=== PATIENT | male | born 1975 | race Caucasian/White ===

== ENCOUNTER 2018-12-28 05:30 | Day surgery (SDC) | payer MEDICAID ==
[2018-12-27 15:58] LABS: BASOPHILS # (AUTO) 0.1 X10'3 (0-0.2); BASOPHILS % (AUTO) 1.1 % (0-1); EOSINOPHILS # (AUTO) 0.2 X10'3 (0-0.9); EOSINOPHILS % (AUTO) 1.9 % (0-6); LYMPHOCYTES % (AUTO) 17.5 % (21-51); MEAN CORPUSCULAR HEMOGLOBIN 27.2 PG (27.0-31.0); MEAN CORPUSCULAR HGB CONC 33.1 g/dL (33.0-36.5); MEAN CORPUSCULAR VOLUME 82.3 FL (78-98); MEAN PLATELET VOLUME 8.9 FL (7.4-10.4); MONOCYTES # (AUTO) 1.5 X10'3 (0-0.9); MONOCYTES % (AUTO) 13.8 % (2-12); NEUTROPHILS # (AUTO) 7.3 X10'3 (1.8-7.7); NEUTROPHILS % (AUTO) 65.7 % (42-75); PRE OP HEMATOCRIT 43.5 % (42.0-52.0); PRE OP HEMOGLOBIN 14.4 g/dL (14.0-17.9); PRE OP PLATELET COUNT 363 X10'3 (140-440); RED BLOOD COUNT 5.29 X10'6 (4.70-6.10); RED CELL DISTRIBUTION WIDTH 18.9 % (11.5-14.5)
[2018-12-27 16:02] LABS: CLARITY,URINE CLEAR (Clear); COLOR,URINE YELLOW (Yellow); GLUCOSE, URINE NEGATIVE (Neg); KETONES,URINE NEGATIVE (Neg); LEUKOCYTE ESTERASE ,URINE NEGATIVE (Neg); NITRITES, URINE NEGATIVE (Neg); OCCULT BLOOD,URINE TRACE-INTACT (Neg); PROTEIN,URINE NEGATIVE (Neg); UROBILINOGEN,URINE 0.2 E.U/dL (0.2-1.0)
[2018-12-27 16:03] LABS: ALBUMIN 4.1 G/DL (3.4-5.0); ALKALINE PHOSPHATASE 111 IU/L (46-116); BLOOD UREA NITROGEN 18 MG/DL (7-18); BUN/CREATININE RATIO 17.5 (5.4-32.0); CALCIUM 9.2 MG/DL (8.5-10.1); CHLORIDE 107 MMOL/L (99-107); CREATININE 1.03 MG/DL (0.60-1.10); PRE OP ALT 24 U/L (30-65); PRE OP ANION GAP 10 (8-16); PRE OP AST 17 U/L (10-37); PRE OP BILIRUB, TOTAL 0.2 MG/DL (0.0-1.0); PRE OP GLUCOSE 91 MG/DL (70-104); PRE OP POTASSIUM 3.8 MMOL/L (3.4-5.1); PRE OP SODIUM 142 MMOL/L (135-145); TOTAL CARBON DIOXIDE 24.8 MMOL/L (24-32); TOTAL PROTEIN 8.3 G/DL (6.4-8.2); eGFR 78 ML/MIN
[2018-12-27 16:29] LABS: LARGE PLATELETS FEW; PLATELET ESTIMATE NORMAL
[2018-12-27 16:30] LABS: ANISOCYTOSIS 2+
[2018-12-27 16:34] LABS: UA COLLECTION TYPE VOIDED
[2018-12-27 16:35] LABS: BACTERIA,URINE NONE SEEN /HPF (Neg); RBC,URINE 0-2 /HPF (0-2); SQUAMOUS EPITHELIAL CELL,UR NONE SEEN /LPF (FEW); WBC,URINE NONE SEEN /HPF (0-4)
[2018-12-28] VITALS (15 sets, daily range): BP systolic 119–171; BP diastolic 71–99
[~2018-12-28] VITALS: Ht 172.7 cm; Wt 79.0 kg
[~2018-12-28 05:30] MED LIST: ACET-75 PO; ATOR10TA87 PO; BACL20TA PO; BUPR150T8 PO; ESCI10TA54 PO; GABA-532 PO; IBUP-1986 PO; MELO-102 PO; PANT40TA4 PO; VERA120T2 PO
[2018-12-28] MEDS ORDERED: LIDOcaine 1% (10mg/ml) 2ml vial ONE (05:55)
[2018-12-28] MEDS ORDERED: ceFAZolin 1000mg inj ONE (07:30)
[2018-12-28] MEDS ORDERED: BUPIVAcaine/PF 2.5 mg/ml (0.25%) 30ml vial ONE (07:30)
[2018-12-28] MEDS ORDERED: fentaNYL/PF 50MCG/1 ML 2ML syringe ONE (08:23)
[2018-12-28] MEDS ORDERED: midazolam 2 mg/2 ml injection ONE (08:24)
[2018-12-28] MEDS ORDERED: rocuronium 10mg/ml inj IV ONE (09:05)
[2018-12-28] MEDS ORDERED: ondansetron/PF 4mg/2ml inj ONE (09:05)
[2018-12-28] MEDS ORDERED: propofol inj 20 ML IV ONE (09:05)
[2018-12-28] MEDS ORDERED: dexamethasone sod phosphate 4mg/ml inj. ONE (09:05)
[2018-12-28] MEDS ORDERED: ringers solution, lacted 1,000 ML IV SCH ×2 (09:13→09:45)
[2018-12-28] MEDS ORDERED: morphine 4 MG/ML inj SYRINge IV PRN ×2 (09:15)
[2018-12-28] MEDS ORDERED: ondansetron/PF 4mg/2ml inj IV PRN (09:15)
[2018-12-28] MEDS ORDERED: proCHLORperazine 10 MG/2 ml inj IV PRN (09:15)
[2018-12-28] MEDS ORDERED: meperidine/PF 25mg/ml syringe IV PRN ×3 (09:15)
[2018-12-28] MEDS ORDERED: neostigmine methylsulfate 1 MG/ML 10ml vial ONE (09:32)
[2018-12-28] MEDS ORDERED: glycopyrrolate 0.2mg/ml inj ONE (09:32)
--- NOTE | 2018-12-28 09:42 | NUR ---
Received from OR via , accompanied by Anesthesiologist DR BORRERO and report given by Anesthesiolgist. PT SLEEPING BUT OPENS EYES TO VOICE, SKIN WARM AND PINK MOVES EXT X 4, PIV RIGHT WRIST 20G WITH LR, 2 BA'S ON ABD CD, NO C/O PAIN.
[2018-12-28] MEDS ORDERED: cefazolin/dext.iso 2gm/100 ML IV ONE (09:45)
[2018-12-28] MEDS ORDERED: albuterol 2.5 MG/3 ML nebule NEB ONE (09:45)
[2018-12-28] MEDS ORDERED: famotidine 20mg tablet PO ONE (09:45)
--- NOTE | 2018-12-28 10:36 | NUR ---
PT ATTEMPTED TO VOID. ONLY A FEW DROPS. PT FEELS LIKE HE HAS TO VOID.
--- NOTE | 2018-12-28 11:49 | NUR ---
PT MEETS DISCHARGE CRITERIA, VSS, IV REMOVED, 2 BA'S ON ABD CD, KERLINE FLUIDS, ABLE TO VOID 200MLS, DISCHARGE INSTRUCTIONS REVIEWED WITH PT. VERBALIZED UNDERSTANDING. NORCO SCRIPT GIVEN TO PT BY FRANNIE. JANELLE DUFFY (07/10).
--- NOTE | 2018-12-28 11:49 | NUR ---
PT MEETS DISCHARGE CRITERIA
== END 2018-12-28 11:49 | disposition home or self-care (01) ==
LOC: PAS 05:30
PROVIDERS: ATTEND Surgery
DX: K40.90 Unilateral inguinal hernia, without obstruction or gangrene, not specified as recurrent (principal); F17.210 Nicotine dependence, cigarettes, uncomplicated; G43.909 Migraine, unspecified, not intractable, without status migrainosus; F32.9 Major depressive disorder, single episode, unspecified; F41.9 Anxiety disorder, unspecified; E78.5 Hyperlipidemia, unspecified; M19.90 Unspecified osteoarthritis, unspecified site; G62.9 Polyneuropathy, unspecified; Z86.14 Personal history of Methicillin resistant Staphylococcus aureus infection; Z88.2 Allergy status to sulfonamides; Z79.899 Other long term (current) drug therapy; Z98.890 Other specified postprocedural states; Z83.6 Family history of other diseases of the respiratory system; Z81.1 Family history of alcohol abuse and dependence
CPT/HCPCS: 36415; 49650; 71046; 80053; 81001; 82948; 85025; 93005; C1781; J0690; J1100; J2001; J2250; J2405; J2704; J2710; J3010; J3490; J7120; A4215; A4314; A4618; A6258; A7000

== ENCOUNTER → 2023-03-01 | Emergency (ER) | payer MEDICAID ==
[~2023-03-01] VITALS: Ht 167.6 cm; Wt 79.5 kg
[~2023-03-01] MED LIST changes: +ESCI-8 PO; -ESCI10TA54 PO; +LORazepam 2 mg/ml vial IV ONE; -PANT40TA4 PO; +PANT40TA54 PO; +acetaminophen 325mg tablet PO ONE; +aspirin 81mg tab.chew PO ONE; +nitroGLYCERIN 0.2mg/hour patch TD ONE; +normal saline 1000ml 1,000 ML IV ONE; +ondansetron/PF 4mg/2ml inj IV ONE; +pantoprazole 40 MG vial IV ONE; +pantoprazole 40MG/NS 100ML BAG 100 ML IV ONE
[2023-03-01 14:59] VITALS: TEMP 97.8
[2023-03-01 15:15] LABS: BASOPHILS # (AUTO) 0.1 X10'3 (0-0.2); BASOPHILS % (AUTO) 0.8 % (0-1); EOSINOPHILS % (AUTO) 0.2 % (0-6); HEMATOCRIT 52.8 % (42.0-52.0); HEMOGLOBIN 17.9 g/dl (14.0-17.9); LYMPHOCYTES # (AUTO) 1.8 X10'3 (1.1-4.8); LYMPHOCYTES % (AUTO) 13.8 % (21-51); MEAN CORPUSCULAR HGB CONC 33.9 g/dL (33.0-36.5); MEAN CORPUSCULAR VOLUME 91.3 FL (78-98); MEAN PLATELET VOLUME 8.9 FL (7.4-10.4); MONOCYTES # (AUTO) 1.7 X10'3 (0-0.9); MONOCYTES % (AUTO) 12.8 % (2-12); NEUTROPHILS # (AUTO) 9.7 X10'3 (1.8-7.7); NEUTROPHILS % (AUTO) 72.4 % (42-75); PLATELET COUNT 311 X10'3 (140-440); RED BLOOD COUNT 5.78 X10'6 (4.70-6.10); RED CELL DISTRIBUTION WIDTH 14.6 % (11.5-14.5); WHITE BLOOD COUNT 13.4 X10'3 (4.5-11.0)
[2023-03-01 15:29] LABS: ALANINE AMINOTRANSFERASE 26 U/L (12-78); ALBUMIN 4.7 G/DL (3.4-5.0); ALBUMIN/GLOBULIN RATIO 1.1 (1.1-1.5); ALKALINE PHOSPHATASE 103 IU/L (46-116); ANION GAP 12 (8-16); ASPARTATE AMINO TRANSFERASE 14 U/L (10-37); BILIRUBIN,TOTAL 0.7 MG/DL (0.1-1.0); BLOOD UREA NITROGEN 11 MG/DL (7-18); BUN/CREATININE RATIO 10.5 (10.0-20.0); CALCIUM 9.6 MG/DL (8.5-10.1); CHLORIDE 101 MMOL/L (99-107); CREATININE 1.05 MG/DL (0.60-1.10); GLUCOSE 96 MG/DL (70-104); POTASSIUM 3.7 MMOL/L (3.5-5.1); SODIUM 136 MMOL/L (135-145); TOTAL CARBON DIOXIDE 23.3 MMOL/L (24-32); eCRCL 78 ML/MIN; eGFR 75 ML/MIN
[2023-03-01 15:36] LABS: PRO BRAIN NATRIURETIC PEPTIDE < 30 PG/ML (0-125)
--- NOTE | 2023-03-01 17:29 | NUR ---
RN NOTIFIED PT SHE WILL HAVE TO START AN IV AND PER PT HE WOULD LIKE TO KNOW HOW LONG HE HAS TO STAY BECAUSE HE HAS TO DROP OFF HIS FAMILY MEMBER. RN WILL INQ WITH DR RODRIGUEZ. RN EDUCATED PT ON IMPORTANCE OF HAVING IV AND HE VERBALIZED UNDERSTANDING.
[2023-03-01 17:45] VITALS: BP 162/91; PULSE 80; RESP 16; O2SAT 100
--- NOTE | 2023-03-01 17:51 | NUR ---
PT REFUSING IV AT THIS TIME UNLESS IT IS ABSOLUTELY NECESSARY AND STATES HE WILL STAY FOR ANOTHER HOUR. RN WILL NOTIFY DR RODRIGUEZ.
[2023-03-01 18:03] LABS: APTT 32 SECONDS (22-32); ETHANOL < 10 MG/DL (<10); LIPASE 15 U/L (16-77); PHOSPHORUS 4.5 MG/DL (2.3-4.5); PROTHROMBIN TIME 10.9 SECONDS (9.0-12.0)
[2023-03-01 18:13] LABS: D-DIMER < 0.19 MG/L FEU (0-0.50)
--- NOTE | 2023-03-01 18:15 | NUR ---
RN NOTIFIED DR RODRIGUEZ THAT PT WAS REFUSING IV AND PER DR RODRIGUEZ HE WILL SPEAK WITH PT.
--- NOTE | 2023-03-01 18:19 | NUR ---
PER DR RODRIGUEZ PT INSISTING ON LEAVING AMA DESPITE HIS EDUCATION. RN WILL HAVE PT SIGN FORM AND REMOVE NITRO PATCH.
--- NOTE | 2023-03-01 18:24 | NUR ---
PT LEFT AMA/SIGNED AMA FORM AND FORM PLACED IN CHART/NITRO PATCH REMOVED FROM PT CHEST. PT REFUSED FURTHER TREATMENT AND INSISTED ON LEAVING AMA DESPITE BEING EDUCATED ABOUT RISKS AND CHANCE OF AND VERBALIZING UNDERSTANDING. NO IV WAS PLACED.
== END | disposition left against medical advice (07) ==
LOC: ER 14:52
DX: R07.89 Other chest pain (principal); I24.9 Acute ischemic heart disease, unspecified; G43.909 Migraine, unspecified, not intractable, without status migrainosus; E78.00 Pure hypercholesterolemia, unspecified; I10 Essential (primary) hypertension; Z88.2 Allergy status to sulfonamides; Z79.1 Long term (current) use of non-steroidal anti-inflammatories (NSAID); Z79.899 Other long term (current) drug therapy
CPT/HCPCS: 36415; 71045; 80053; 80320; 83690; 83880; 84100; 84484; 85025; 85379; 85610; 85730; 93005; 99285; 99291

== ENCOUNTER 2023-03-02 15:46 | Emergency (ER) | payer MEDICAID ==
[~2023-03-02] VITALS: Ht 167.6 cm; Wt 77.1 kg
[~2023-03-02 15:46] MED LIST changes: -LORazepam 2 mg/ml vial IV ONE; -acetaminophen 325mg tablet PO ONE; -aspirin 81mg tab.chew PO ONE; -nitroGLYCERIN 0.2mg/hour patch TD ONE; -normal saline 1000ml 1,000 ML IV ONE; -ondansetron/PF 4mg/2ml inj IV ONE; -pantoprazole 40 MG vial IV ONE; -pantoprazole 40MG/NS 100ML BAG 100 ML IV ONE
[2023-03-02 16:03] VITALS: TEMP 97
[2023-03-02 17:20] VITALS: BP 159/97; PULSE 80; RESP 18; O2SAT 98
== END 2023-03-02 19:27 | disposition home or self-care (01) ==
LOC: ER 15:48
DX: I10 Essential (primary) hypertension (principal); G43.909 Migraine, unspecified, not intractable, without status migrainosus; E78.00 Pure hypercholesterolemia, unspecified; G89.29 Other chronic pain; Z88.2 Allergy status to sulfonamides; Z79.899 Other long term (current) drug therapy
CPT/HCPCS: 99281

== ENCOUNTER 2024-01-10 08:07 | Day surgery (SDC) | payer MEDICAID ==
[2024-01-06 13:58] LABS: BASOPHILS # (AUTO) 0.1 X10'3 (0-0.2); EOSINOPHILS # (AUTO) 0.1 X10'3 (0-0.9); LYMPHOCYTES # (AUTO) 1.8 X10'3 (1.1-4.8); MONOCYTES # (AUTO) 1.3 X10'3 (0-0.9); PRE OP HEMOGLOBIN 15.4 g/dL (14.0-17.9); RED CELL DISTRIBUTION WIDTH 14.5 % (11.5-14.5)
[2024-01-06 14:00] LABS: BASOPHILS % (AUTO) 0.8 % (0-1); EOSINOPHILS % (AUTO) 0.7 % (0-6); LYMPHOCYTES % (AUTO) 20.5 % (21-51); MEAN CORPUSCULAR HEMOGLOBIN 31.3 PG (27.0-31.0); MEAN CORPUSCULAR HGB CONC 33.7 g/dL (33.0-36.5); MEAN CORPUSCULAR VOLUME 92.8 FL (78-98); MEAN PLATELET VOLUME 8.8 FL (7.4-10.4); MONOCYTES % (AUTO) 14.8 % (2-12); NEUTROPHILS # (AUTO) 5.7 X10'3 (1.8-7.7); NEUTROPHILS % (AUTO) 63.2 % (42-75); PRE OP HEMATOCRIT 45.7 % (42.0-52.0); PRE OP PLATELET COUNT 283 X10'3 (140-440); RED BLOOD COUNT 4.92 X10'6 (4.70-6.10)
[2024-01-06 14:11] LABS: ALKALINE PHOSPHATASE 97 IU/L (46-116); BLOOD UREA NITROGEN 17 MG/DL (7-18); BUN/CREATININE RATIO 19.5 (10.0-20.0); CALCIUM 9.1 MG/DL (8.5-10.1); CHLORIDE 107 MMOL/L (99-107); CREATININE 0.87 MG/DL (0.60-1.10); PRE OP ALT 32 U/L (30-65); PRE OP ANION GAP 6 (8-16); PRE OP AST 18 U/L (10-37); PRE OP BILIRUB, TOTAL 0.3 MG/DL (0.0-1.0); PRE OP GLUCOSE 62 MG/DL (70-104); PRE OP SODIUM 141 MMOL/L (135-145); TOTAL CARBON DIOXIDE 27.8 MMOL/L (24-32); TOTAL PROTEIN 7.9 G/DL (6.4-8.2); eGFR > 90 ML/MIN
[2024-01-10] VITALS (7 sets, daily range): BP systolic 113–138; BP diastolic 83–93; PULSE 61–80; RESP 11–16; TEMP 98.3; O2SAT 96–100
[~2024-01-10] VITALS: Ht 167.6 cm; Wt 75.6 kg
[2024-01-10] MEDS: cefazolin 2gm/D5W 100mL 100 ML IV ONE (05:30)
[~2024-01-10 08:07] MED LIST changes: +AMIT50TA15 PO; +ERGO500041 PO; -ESCI-8 PO; +FLO0.4C PO; +FLUT100B3 INH; -IBUP-1986 PO
[2024-01-10] MEDS: famotidine 20mg tablet PO ONE (09:47)
[2024-01-10] MEDS: ringers solution, lacted 1,000 ML IV SCH (09:52)
[2024-01-10] MEDS ORDERED: LIDOcaine 2% (20mg/ml) 5ml vial ONE (12:38)
[2024-01-10] MEDS ORDERED: morphine 4 MG/ML inj SYRINge IV PRN (13:00)
[2024-01-10] MEDS ORDERED: meperidine/PF 25mg/ml syringe IV PRN ×3 (13:00)
[2024-01-10] MEDS ORDERED: morphine 2 MG/ML inj. syringe IV PRN (13:00)
[2024-01-10] MEDS ORDERED: ondansetron/PF 4mg/2ml inj IV PRN (13:00)
[2024-01-10] MEDS ORDERED: labetalol 20mg/4ml (5mg/ml) syringe IV PRN (13:00)
[2024-01-10] MEDS ORDERED: proCHLORperazine 10 MG/2 ml inj IV PRN (13:00)
[2024-01-10] MEDS ORDERED: acetaminophen 1,000mg/100ml IV 100 ML IV ONE (13:00)
[2024-01-10] MEDS ORDERED: ringers solution, lacted 1,000 ML IV SCH (13:00)
[2024-01-10] MEDS ORDERED: hydrALAZINE 20mg/ml inj. IV PRN (13:00)
[2024-01-10] MEDS ORDERED: fentaNYL/PF 50MCG/1 ML 2ML syringe ONE (13:07)
[2024-01-10] MEDS ORDERED: midazolam 1 mg/ML 2ml injection ONE (13:23)
[2024-01-10] MEDS ORDERED: propofol inj 20 ML IV ONE (13:23)
== END 2024-01-10 14:09 | disposition home or self-care (01) ==
LOC: PAS 08:07
PROVIDERS: ATTEND Orthopaedic Surgery Hand Surgery
DX: G56.03 Carpal tunnel syndrome, bilateral upper limbs (principal); I10 Essential (primary) hypertension; J44.9 Chronic obstructive pulmonary disease, unspecified; K21.9 Gastro-esophageal reflux disease without esophagitis; G43.909 Migraine, unspecified, not intractable, without status migrainosus; M19.90 Unspecified osteoarthritis, unspecified site; Z87.891 Personal history of nicotine dependence; Z79.891 Long term (current) use of opiate analgesic; Z79.899 Other long term (current) drug therapy; Z88.2 Allergy status to sulfonamides; Z82.49 Family history of ischemic heart disease and other diseases of the circulatory system; Z82.5 Family history of asthma and other chronic lower respiratory diseases; Z80.9 Family history of malignant neoplasm, unspecified
CPT/HCPCS: 29848; 36415; 80053; 82948; 85025; 93005; J0690; J2250; J2704; J3010; J3490; J7030; J7120; Z7506; Z7512; A4215; A6449; A7000

== ENCOUNTER 2024-02-07 05:24 | Day surgery (SDC) | payer MEDICAID ==
[2024-02-02 11:15] LABS: BASOPHILS # (AUTO) 0.1 X10'3 (0-0.2); BASOPHILS % (AUTO) 0.8 % (0-1); EOSINOPHILS % (AUTO) 0.5 % (0-6); MEAN PLATELET VOLUME 8.6 FL (7.4-10.4); MONOCYTES # (AUTO) 1.1 X10'3 (0-0.9)
[2024-02-02 11:16] LABS: LYMPHOCYTES # (AUTO) 1.3 X10'3 (1.1-4.8); LYMPHOCYTES % (AUTO) 14.8 % (21-51); MEAN CORPUSCULAR HEMOGLOBIN 31.7 PG (27.0-31.0); MEAN CORPUSCULAR HGB CONC 33.9 g/dL (33.0-36.5); MEAN CORPUSCULAR VOLUME 93.4 FL (78-98); MONOCYTES % (AUTO) 12.9 % (2-12); NEUTROPHILS # (AUTO) 6.3 X10'3 (1.8-7.7); PRE OP HEMATOCRIT 47.4 % (42.0-52.0); PRE OP HEMOGLOBIN 16.1 g/dL (14.0-17.9); PRE OP PLATELET COUNT 322 X10'3 (140-440); PRE OP WHITE BLOOD COUNT 8.9 10'3 (4.8-10.8); RED BLOOD COUNT 5.08 X10'6 (4.70-6.10); RED CELL DISTRIBUTION WIDTH 14.9 % (11.5-14.5)
[2024-02-02 11:27] LABS: ALBUMIN 4.3 G/DL (3.4-5.0); ALBUMIN/GLOBULIN RATIO 1.1 (1.1-1.5); ALKALINE PHOSPHATASE 86 IU/L (46-116); BLOOD UREA NITROGEN 14 MG/DL (7-18); BUN/CREATININE RATIO 14.9 (10.0-20.0); CALCIUM 9.2 MG/DL (8.5-10.1); CHLORIDE 105 MMOL/L (99-107); CREATININE 0.94 MG/DL (0.60-1.10); PRE OP ALT 29 U/L (30-65); PRE OP ANION GAP 7 (8-16); PRE OP AST 20 U/L (10-37); PRE OP BILIRUB, TOTAL 0.5 MG/DL (0.0-1.0); PRE OP GLUCOSE 79 MG/DL (70-104); PRE OP POTASSIUM 4.1 MMOL/L (3.4-5.1); PRE OP SODIUM 139 MMOL/L (135-145); TOTAL CARBON DIOXIDE 27.1 MMOL/L (24-32); TOTAL PROTEIN 8.3 G/DL (6.4-8.2); eGFR 85 ML/MIN
[~2024-02-07] VITALS: Ht 175.3 cm; Wt 74.8 kg
[~2024-02-07 05:24] MED LIST changes: -ACET-75 PO; -ATOR10TA87 PO; +ATOR20TA PO; +GLUCOSAMINE; +MULT-1085 PO; +NICO-687 TD
[2024-02-07] MEDS ORDERED: albuterol 2.5 MG/3 ML nebule NEB ONE (05:30)
[2024-02-07 05:35] VITALS: BP 124/73; PULSE 64; RESP 16; TEMP 98.2; O2SAT 100
[2024-02-07] MEDS: famotidine 20mg tablet PO ONE (06:18)
[2024-02-07] MEDS: ringers solution, lacted 1,000 ML IV SCH (06:18)
[2024-02-07] MEDS: cefazolin 2gm/D5W 100mL 100 ML IV ONE (06:19)
[2024-02-07] MEDS ORDERED: midazolam 1 mg/ML 2ml injection ONE (08:20)
[2024-02-07] MEDS ORDERED: fentaNYL/PF 50MCG/1 ML 2ML syringe ONE (08:20)
[2024-02-07] MEDS ORDERED: LIDOcaine 2% (20mg/ml) 5ml vial ONE (08:33)
[2024-02-07] MEDS ORDERED: propofol inj 20 ML IV ONE (08:33)
[2024-02-07 08:44] VITALS: BP 121/82; PULSE 75; RESP 16; O2SAT 99
[2024-02-07 08:50] VITALS: BP 117/74; PULSE 74; RESP 13; O2SAT 99
[2024-02-07 09:00] VITALS: BP 134/76; PULSE 71; RESP 12; O2SAT 100
[2024-02-07 09:10] VITALS: BP 122/81; PULSE 73; RESP 16; O2SAT 98
[2024-02-07] MEDS: BUPIVAcaine/PF 2.5mg/ml (0.25%) 10ml vial ONE (09:23)
[2024-02-07] MEDS: LIDOcaine 2% (20mg/ml) 5ml vial ONE (09:26)
== END 2024-02-07 09:14 | disposition home or self-care (01) ==
LOC: PAS 05:24
PROVIDERS: ATTEND Orthopaedic Surgery Hand Surgery
DX: G56.02 Carpal tunnel syndrome, left upper limb (principal); I10 Essential (primary) hypertension; J44.9 Chronic obstructive pulmonary disease, unspecified; F41.9 Anxiety disorder, unspecified; F32.A Depression, unspecified; G43.909 Migraine, unspecified, not intractable, without status migrainosus; K21.9 Gastro-esophageal reflux disease without esophagitis; Z87.891 Personal history of nicotine dependence; Z79.891 Long term (current) use of opiate analgesic; Z79.899 Other long term (current) drug therapy; Z88.2 Allergy status to sulfonamides
CPT/HCPCS: 29848; 36415; 80053; 82948; 85025; J0690; J2250; J2704; J3010; J3490; J7030; J7120; Z7506; Z7512; A4215; A4618; A6449; A7000